=== PATIENT | male | born 1990 | race Caucasian/White ===

== ENCOUNTER 2016-06-15 18:18 | Emergency (ER) | payer MEDICAID ==
[2016-06-15] MEDS ORDERED: KETOROLAC 30 MG/ML VIAL ONE (19:52)
[2016-06-15] MEDS ORDERED: CEFTRIAXONE 1 GM VIAL ONE (19:52)
[2016-06-15] MEDS ORDERED: SODIUM CHLORIDE 0.9% 100 ML IV ONE (19:53)
[2016-06-15] MEDS ORDERED: SODIUM CHLORIDE 0.9% 1,000 ML ONE (19:53)
== END 2016-06-15 22:01 | disposition home or self-care (01) ==
LOC: EEVIPCON 18:18 → ER 18:18
CPT/HCPCS: 36415; 74176; 80053; 81001; 82553; 83690; 84484; 85025; 87088; 87491; 87591; 93005; 96361; 96365; 96375